=== PATIENT | female | born 1985 | race Caucasian/White ===

== ENCOUNTER 2017-09-25 03:02 | Emergency (ER) | payer OTHER ==
[~2017-09-25] VITALS: Ht 165.1 cm; Wt 119.4 kg
[~2017-09-25 03:02] MED LIST: AMOXICILLIN500 MG OR; CELEXA40 MG PO; CIPRO500 MG OR; CIPRO500 MG PO; CLEOCIN300 MG PO; FLAGYL500 MG OR; LORTAB5 PO; NAPROXEN500 MG OR; NO HOME MEDS; PENICILLN VK500 M1 OR; PENICILLN VK500 MG OR; PENICILLN VK500 MG PO; PERIDEX0.12 % MT; PRENATA3 OR; PRENATAL1 TAB OR; REGLAN10 MG OR; ROBITUSS11 OR; ULTRAM50 M1 PO; ZITHROMAX250 MG PO
[2017-09-25 03:33] LABS: INFLUENZA A NONE DETECTED (NONE DETECT); INFLUENZA B NONE DETECTED (NONE DETECT)
[2017-09-25] MEDS ORDERED: AMOXICILLIN500 MG PO (03:47)
[2017-09-25 03:52] VITALS: BP 147/90
== END 2017-09-25 04:04 | disposition home or self-care (01) | DRG 153 ==
LOC: ED 03:02
PROVIDERS: Emergency Medicine
DX: J02.0 Streptococcal pharyngitis (principal); R05 Cough

== ENCOUNTER 2021-08-28 19:45 | Emergency (ER) | payer OTHER, MEDICAID ==
[~2021-08-28] VITALS: Ht 162.6 cm; Wt 118.0 kg
[~2021-08-28 19:45] MED LIST changes: +AMOXICILLIN500 MG PO
[2021-08-28] MEDS ORDERED: AMOX/K CLAV875 M1 PO (21:18)
[2021-08-28 21:20] VITALS: BP 157/94
== END 2021-08-28 21:20 | disposition home or self-care (01) | DRG 605 ==
LOC: ED 19:45
DX: S91.331A Puncture wound without foreign body, right foot, initial encounter (principal); W45.0XXA Nail entering through skin, initial encounter; Y92.009 Unspecified place in unspecified non-institutional (private) residence as the place of occurrence of the external cause